=== PATIENT | male | born 1940 | race Caucasian/White ===

== ENCOUNTER 2023-01-07 12:31 | Outpatient (CLI) | payer MEDICARE ==
[2023-01-07 15:06] LABS: CREATININE,URINE 124.3 mg/dL; MICROALBUM/CREATININE RATIO,UR 9.7 ug/mg (<30.0); MICROALBUMIN,URINE 1.2 mg/dL
== END 2023-01-07 12:32 | disposition home or self-care (01) ==
LOC: LAB.S 12:31
PROVIDERS: ATTEND Internal Medicine
DX: N18.31 Chronic kidney disease, stage 3a (principal)
CPT/HCPCS: 36415; 80053; 82043; 82570

== ENCOUNTER 2023-01-12 13:26 | Outpatient (CLI) | payer MEDICARE ==
[2023-01-12 13:59] LABS: ALBUMIN 4.4 g/dL (3.2-5.5); ALBUMIN/GLOBULIN RATIO 1.4 (1.0-2.2); BILIRUBIN,TOTAL 0.5 mg/dL (0.2-1.0); CALCIUM 9.5 mg/dL (8.5-10.3); CREATININE 1.8 mg/dL (0.6-1.3); POTASSIUM 4.2 mmol/L (3.5-4.5); TOTAL PROTEIN 7.5 g/dL (6.4-8.9)
== END 2023-01-12 13:27 | disposition home or self-care (01) ==
LOC: LAB 13:26
PROVIDERS: ATTEND Internal Medicine
DX: N18.31 Chronic kidney disease, stage 3a (principal)
CPT/HCPCS: 36415; 80053; 82043; 82570

== ENCOUNTER 2023-05-21 10:24 | Outpatient (CLI) | payer MEDICARE ==
[2023-05-21 10:46] LABS: BASOPHILS # (AUTO) 0.1 10^3/uL (0.0-0.1); EOSINOPHILS # (AUTO) 0.2 10^3/uL (0.0-0.7); EOSINOPHILS % (AUTO) 3.9 %; HCT - HEMATOCRIT 42.2 % (42.0-52.0); HGB - HEMOGLOBIN 13.6 g/dL (14.0-18.0); LYMPHOCYTES % (AUTO) 19.5 %; MEAN CORPUSCULAR HEMOGLOBIN 30.7 pg (27.0-31.0); MEAN CORPUSCULAR HGB CONC 32.2 g/dL (32.0-36.0); MEAN CORPUSCULAR VOLUME 95.3 fL (80.0-94.0); MONOCYTES # (AUTO) 0.5 10^3/uL (0.0-1.0); MONOCYTES % (AUTO) 9.9 %; NEUTROPHILS # (AUTO) 3.4 10^3/uL (1.5-6.6); NEUTROPHILS % (AUTO) 65.3 %; PLT - PLATELET COUNT 247 10^3/uL (130-450); RED BLOOD COUNT 4.43 10^6/uL (4.70-6.10); RED CELL DISTRIBUTION WIDTH 12.3 % (12.0-15.0); WHITE BLOOD COUNT 5.2 x10^3/uL (4.8-10.8)
[2023-05-21 11:09] LABS: ALBUMIN 4.2 g/dL (3.2-5.5); ALBUMIN/GLOBULIN RATIO 1.4 (1.0-2.2); BILIRUBIN,TOTAL 0.6 mg/dL (0.2-1.0); CALCIUM 9.3 mg/dL (8.5-10.3); CREATININE 1.7 mg/dL (0.6-1.3); CRP - C-REACTIVE PROTEIN 0.8 mg/dL (<0.5); POTASSIUM 4.3 mmol/L (3.5-4.5); TOTAL PROTEIN 7.3 g/dL (6.4-8.9)
[2023-05-21 11:18] LABS: ESTIMATED AVERAGE GLUCOSE 134 mg/dL (70-100); HEMOGLOBIN A1c% 6.3 % (4.27-6.07)
[2023-05-21 11:27] LABS: FERRITIN 64.4 ng/mL (23.9-336.2)
== END 2023-05-21 10:25 | disposition home or self-care (01) ==
LOC: LAB 10:24
PROVIDERS: ATTEND Internal Medicine
DX: N18.31 Chronic kidney disease, stage 3a (principal); G25.81 Restless legs syndrome; R73.9 Hyperglycemia, unspecified; M12.9 Arthropathy, unspecified
CPT/HCPCS: 36415; 80053; 82728; 83036; 83540; 84466; 85025; 86140

== ENCOUNTER 2023-07-15 12:27 | Outpatient (CLI) | payer MEDICARE ==
[2023-07-15 12:56] LABS: ALBUMIN/GLOBULIN RATIO 1.2 (1.0-2.2); BILIRUBIN,TOTAL 0.4 mg/dL (0.2-1.0); CALCIUM 10.1 mg/dL (8.5-10.3); CREATININE 1.8 mg/dL (0.6-1.3); POTASSIUM 4.5 mmol/L (3.5-4.5); TOTAL PROTEIN 7.3 g/dL (6.4-8.9)
[2023-07-15 13:03] LABS: CREATININE,URINE 139.4 mg/dL; MICROALBUM/CREATININE RATIO,UR 7.9 ug/mg (<30.0); MICROALBUMIN,URINE 1.1 mg/dL
== END 2023-07-15 12:28 | disposition home or self-care (01) ==
LOC: LAB 12:27
PROVIDERS: ATTEND Internal Medicine
DX: N18.31 Chronic kidney disease, stage 3a (principal)
CPT/HCPCS: 36415; 80053; 82043; 82570

== ENCOUNTER 2023-12-04 20:08 | Emergency (ER) | payer MEDICARE ==
[2023-12-04 20:17] VITALS: BP 160/74; O2SAT 97
--- NOTE | 2023-12-04 20:20 | ED Physician Documentation ---
History of Present Illness - Stated complaint Stated Complaint: LT EYE INJ - Chief complaint Chief Complaint: Heent - Additonal information Additional information: 83-year-old male presents with left eye injury. A few hours ago, he accidentally put a drop of [employer] dish soap in his left eye. He thoroughly washed this out at home, then presented to urgent care, where he had thorough irrigation, was given eyedrops which helped, and had an appointment set up tomorrow for Eye Clinic assessment. He was discharged but presented here because he had recurring pain to his left eye. No new injuries. He has mild blurry vision of his left eye. No contacts. No prior eye surgeries. He is otherwise healthy. Tdap is up-to-date. No other concerns. ROS Constitutional: no fever, no chills Eyes: +visual disturbance, no discharge Ears, Nose, Mouth, Throat: no rhinorrhea, no sore throat Cardiovascular: no chest pain, no palpitations Respiratory: no cough, no shortness of breath Gastrointestinal: no abdominal pain, no vomiting, no diarrhea Genitourinary: no dysuria, no hematuria Musculoskeletal: no back pain, no neck stiffness Skin: no rash, no wound Neurological: no focal weakness, no focal numbness PD PAST MEDICAL HISTORY - Past Medical History Past Medical History: Yes Cardiovascular: Hypertension GI: GERD Musculoskeletal: Rheumatoid arthritis - Past Surgical History Past Surgical History: Yes - Present Medications Home Medications: Ambulatory Orders Medication Instructions Recorded Confirmed Naloxone HCl Nasal [Narcan Nasal] 4 mg NS ONCE PRN #2 kit 12/04/23 oxyCODONE [Roxicodone] 5 mg PO Q4-6H PRN #5 tablet 12/04/23 - Allergies Allergies/Adverse Reactions: Allergies Allergy/AdvReac Type Severity Reaction Status Date / Time propoxyphene [From Darvon] Allergy Rash Verified 12/04/23 20:13 - Social History Does the pt smoke?: No Smoking Status: Never smoker Does the pt drink ETOH?: No Does the pt have substance abuse?: No - Immunizations Immunizations are current?: Yes - POLST Patient has POLST: No PD ED PE NORMAL - Free text exam Free text exam: Const: no acute distress, non toxic appearing; calm, conversant, pleasant Eyes: -OS with mild conjunctival injection and mild watery discharge. -Extraocular motions intact without pain or double vision. -Pupils equal, round, and reactive to light and accommodation. No afferent pupillary defect. -No photophobia. -Visual acuity: 20/20 OD; 20/70 OS -Visual vargas fully intact bilaterally -Response to proparacaine: complete resolution of pain -Fluorescein stain: OS with roughly 2mm circular large abrasion, currently does not appear to be ulceration, no laceration, negative Umesh's sign ENT: mucous membranes moist Neck: supple, non-tender Resp: no respiratory distress Card: regular mild bradycardia Abd: non tender diffusely, no rigidity or rebound or guarding Extrem: no deformities, no swelling bilateral lower extremities Neuro: ANOx4, director hair 2-12 intact, intact sensation and strength all extremities, normal coordination Skin: no rash, warm and dry Results - Vitals Vitals: Vital Signs - 24 hr 12/04/23 20:13 Temperature 36.5 C Heart Rate 58 L Respiratory 16 Rate Blood Pressure 160/74 H O2 Saturation 97 Oxygen O2 Source Room air PD Medical Decision Making - ED course ED course: This patients presentation is highly consistent with corneal abrasion, possible early ulceration in a patient with prior chemical exposure. He has had thorough cleaning irrigation prior to arrival. Tdap up-to-date. Eye clinic follow-up was set up for tomorrow. This is not consistent with open globe or traumatic glaucoma. He is now comfortable following proparacaine, and I will prescribe short course oxycodone with careful use discussed to help as well. In addition, I have initiated into giving him erythromycin ophthalmic 0.5% to apply 4 times daily for 7 days. I have discussed his exam findings with him, and he fully understands importance of close follow-up and return precautions. Spouse at bedside. No other new concerns. Discharging in stable condition. Patient ambulatory and tolerating PO. Exams and vital signs reassuring. Blood pressure is elevated but suitable for outpatient follow up, with no evidence of hypertensive emergency here clinically. Patient questions answered and plan reviewed. Strong return precautions given. Patient discharged. Departure - Departure Disposition: 01 Home, Self Care Clinical Impression: Chemical exposure of eye Condition: Stable Prescriptions: Naloxone HCl Nasal [Narcan Nasal] 4 mg NS ONCE PRN #2 kit PRN Reason: narcotic overdose oxyCODONE [Roxicodone] 5 mg PO Q4-6H PRN #5 tablet PRN Reason: Pain Comments: It was a pleasure taking care of you today. It is important to fully read and understand the below. Please ask us if you have any questions. We see an injury likely to the surface of your left eye. It is very important you see eye clinic tomorrow as discussed. In addition, as discussed, please apply erythromycin ointment roughly 1 cm to your left eye every 6 hours for 1 week. Do not apply other antibiotics unless told to by clinic tomorrow. You have been given or prescribed any narcotics or other sedating medications. Please take only what you must, DO NOT combine with alcohol or other sedating medications, DO NOT drive while taking, do not allow anyone else to take these medications, and please carefully dispose of what you do not use. No tests or assessments are perfect, and your condition could oil change technician time. If your symptoms change or worsen, it is very important you immediately seek medical care. If you have any new or worsening pain, visual changes, rash or worsening discharge, shortness of breath, fever, vomiting, confusion, numbness, weakness, or anything else that concerns you, please immediately seek medical care. If you have been prescribed any medications: please read the drug package i nserts on how to properly use the medication and any potential side effects. If you had labs (blood tests) or imaging (CT scan or x-rays) done during your visit: please follow up on the results of these with your primary care doctor, as discussed. In addition, please know the results we received today may be preliminary. Our usual practice is to follow up on tests within a few days of a patient's discharge from the Emergency Department and notify you of any changes. These may lead to changes to your treatment plan. However, the best way to obtain and interpret these test results is through your Primary Care Provider. If you need to update your contact information, please stop by the front desk clerk and alert the Registration personnel before you leave the Emergency Department. Thank you for the opportunity to participate in your healthcare. We are always here and happy to see you in the future. Forms: PCP List
[2023-12-04] MEDS: PROPARACAINE 0.5% OPHTH DROPS 15 ML EACHEYE STA (20:27)
[2023-12-04] MEDS: ERYTHROMYCIN OPHTH OINT 1 GM TUBE LEFTEYE STA (20:45)
== END 2023-12-04 20:56 | disposition home or self-care (01) ==
LOC: ED 20:08
DX: S05.92XA Unspecified injury of left eye and orbit, initial encounter (principal); W44.8XXA Other foreign body entering into or through a natural orifice, initial encounter
CPT/HCPCS: 99282; 99283; J3490